=== PATIENT | female | born 1970 ===

== ENCOUNTER → 2018-06-14 08:48 | Day surgery (SDC) | payer BC ==
[~2018-06-14 08:48] MED LIST: Buffered Lidocaine 1% SYRIN* 1 ML/SYRINGE INTRADERM ONE; Bupivacaine 0.5% W/EPI SDV* 30 ML VIAL ONE; Dexamethasone IV* 4 MG/ML 1 ML (4 MG) ONE; Famotidine IV* 10 MG/ML 2 ML (20 mg) IV ONE; Famotidine IV* 10 MG/ML 2 ML (20 mg) ONE; Ketorolac INJ* 30 MG/ML 1 ML VIAL ONE; Lactated Ringers 1000 ML Bag* 1,000 ML IV SCH; Lidocaine 1% INJ* 10 MG/ML 30 ML SDV ONE; Lidocaine 2% PF * 5 ML VIAL ONE; Midazolam* 1 MG/ML 10 ML VIAL (10 MG) ONE; Naloxone* 0.4 MG/ML 1 ML VIAL IV PRN; Ondansetron INJ* 2 MG/ML VIAL IV PRN; Ondansetron INJ* 2 MG/ML VIAL ONE; Propofol* 10 MG/ML 20 ML BTL ONE; fentaNYL* 50 MCG/ML 2 ML VIAL (100 MCG VIAL) IV PRN; fentaNYL* 50 MCG/ML 2 ML VIAL (100 MCG VIAL) ONE
--- NOTE | 2018-06-14 11:41 | BRIEFOPN ---
Brief Operative Note - Surgery Procedures: Procedures Pre-OP Diagnoses: painful shoulder lesion Post-op Diagnosis: same Procedure: Excisional biopsy of left shoulder lipoma Surgeon: Cierra Asst: none Anethesia: local MIMI Johnston EBL: minimal IVF: minimal Specimen: lipoma Drains: none
[2018-06-14 13:31] VITALS: BP 112/76
--- NOTE | 2018-06-14 13:40 | OP ---
CC: Primary Care Doctor, Amina Torres MD * DATE OF OPERATION: 06/14/18 - SDS DATE OF : 72 SURGEON: Michael Norton MD [employer] SAWYER: None. ANESTHESIOLOGIST: Dr. Johnston. ANESTHESIA: Local MAC anesthesia. PRE-OP DIAGNOSIS: Painful left shoulder lesion. POST-OP DIAGNOSIS: Lipoma. OPERATIVE PROCEDURE: Excisional biopsy of left shoulder lipoma. ESTIMATED BLOOD LOSS: Minimal blood loss. FLUIDS: Minimal crystalloid fluid given. SPECIMEN: Lipoma. DRAINS: None. DESCRIPTION OF PROCEDURE: The patient was identified in the preoperative area, she was marked, consent was signed, taken to the operating room, placed on the operating table in the right lateral decubitus position. Pressure points were protected and gentle sedation was given. The patient's left shoulder and upper back were prepped and draped in a standard surgical fashion and a time-out was performed. Injection of lidocaine at the proposed incision site as well as around the discrete lesion was carried out. We then made an incision through the skin and subcutaneous fat down to what appeared to be a lipoma; this was loculated and came out in pieces. We then made sure we took out all the areas. I did take the dissection right down to the muscle fascia. At one area, I did incise portion of the fascia and made sure that this was only muscle below and not additional lipoma that tailed in; it was not. At this point, we irrigated, injected additional amount of medication, hemostasis was achieved, and the wound was closed with 3-0 Vicryl sutures followed by 4-0 Monocryl subcuticular suture. Steri-Strips and sterile dressing were applied. The patient tolerated the procedure and was woken up and transferred to the PACU in stable condition. [id number]/[facility] #: [id number] MTDD
== END | disposition home or self-care (01) ==
LOC: OR 08:48
PROVIDERS: ATTEND Surgery
DX: D17.1 Benign lipomatous neoplasm of skin and subcutaneous tissue of trunk (principal); M06.9 Rheumatoid arthritis, unspecified
CPT/HCPCS: 81025; 88304; J1100; J1885; J2250; J2405; J2704; J3010